=== PATIENT | female | born 1945 ===

== ENCOUNTER 2021-11-13 14:06 | Outpatient (CLI) | payer MEDICARE, BC, SELFPAY ==
--- NOTE | 2021-11-13 14:00 | RT.EKG_ITS ---
APPROVED REPORT Exam: Resting ECG Reason for Exam: chest tightness Patient Location: O HR:79 bpm ECG Measurements Heart Rate 79 AXIS VA 115 P 45 QRSd 86 QRS -42 QT 379 T 58 QTc 436 Conclusion Sinus rhythm...normal P axis, V-rate 60- 99 Inferior infarct, old...Q >35mS, II III aVF Consider anterior infarct...Q >30mS in V2-V5
== END 2021-11-13 14:07 | disposition home or self-care (01) ==
LOC: DI.KIM 14:08
PROVIDERS: PCP Internal Medicine; Visit Provider Internal Medicine
DX: R07.9 Chest pain, unspecified (principal); R94.31 Abnormal electrocardiogram [ECG] [EKG]
CPT/HCPCS: 93010